=== PATIENT | male | born 1995 | race Caucasian/White ===

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

== ENCOUNTER 2017-01-04 22:16 | Emergency (ER) | payer OTHER ==
[2017-01-04 22:26] VITALS: BP 00/00; PULSE 114; BMI 23.3
--- NOTE | 2017-01-04 22:51 | PDOC ---
History of Present Illness - General Chief Complaint: Injury Stated Complaint: LACERATION Time Seen by Provider: 01/04/17 22:45 History Source: Care Provider, Custodial Records Exam Limitations: Clinical Condition - History of Present Illness Initial Comments: 01/04/17 22:46 21yo Severely Autistic patient presented to ED by Staff c/o laceration to inside of mouth, that occurred today. Staff states patient biting down on inside of right cheek, causing bleeding. Patient sent in for evaluation. Denies trauma, injury, fall, or any other complaints at this time. ---Spoke with facility Dr. Mixon regarding ED treatment. Discussion on suturing to inside of mouth should take place now or continue to watch and evaluate patient activity regarding biting to inside of mouth. It was agreed upon that no ED treatment or intervention at this time. If condition worsens, then patient should return to ED, for probable sedation and suturing of laceration. No other complaints verbalized. Past History - Travel Traveled outside of the country in the last 30 days: No Close contact w/someone who was outside of country & ill: No - Past Medical History Allergies/Adverse Reactions: Allergies Allergy/AdvReac Type Severity Reaction Status Date / Time No Known Allergies Allergy Verified 01/04/17 22:26 Home Medications: Ambulatory Orders Acetaminophen [Non-Aspirin Pain Relief] 650 mg PO PRN 11/09/15 Ammonium Lactate Lotion [Lac-Hydrin 12% Lotion -] 1 applic TP ASDIR 11/09/15 Ammonium Lactate [Skin Treatment] 225 gm TP BID 11/09/15 Benzoyl Peroxide 5% Gel - 1 applic TP BID 11/09/15 Benztropine Mesylate 2 mg PO QID 11/09/15 Clonazepam 2 mg PO QID 11/09/15 Clonidine HCl 0.1 mg PO TID 11/09/15 Clotrimazole [Lotrimin 1% Cream -] 1 applic TP DAILY 11/09/15 Haloperidol [Haldol -] 10 mg PO QID 11/09/15 Insulin Aspart [Novolog] 0 unit SQ ASDIR 11/09/15 Insulin Aspart [Novolog] 8 unit SQ AM 11/09/15 Insulin Glargine,Hum.rec.anlog [Lantus Solostar PEN (NF)] 12 units SQ HS Levetiracetam [Keppra -] 250 mg PO BID 11/09/15 Loperamide HCl [Loperamide] 2 mg PO PRN 11/09/15 Loratadine [Claritin -] 10 mg PO DAILY 11/09/15 Melatonin/Pyridoxine [Melatonin 3 mg Tablet] 1 each PO DAILY 11/09/15 Multivitamins [Tab-A-Vit -] 1 tab PO DAILY 11/09/15 Neomy Sulf/Bacitra/Polymyxin B [Neosporin Eye Ointment -] 1 applic OD TID Diabetes: Yes Psychiatric Problems: Yes (INTELLECTUAL ABILITY, MOOD DISORDER) Seizures: Yes - Psycho/Social/Smoking Cessation Hx Suicidal Ideation: No Smoking History: Never smoked Have you smoked in the past 12 months: No Hx Alcohol Use: No Drug/Substance Use Hx: No Substance Use Type: None Review of Systems - Review of Systems Able to Perform ROS?: No Is the patient limited Occitan proficient: Yes HEENTM: Yes: Mouth Pain, Other (< 1cm superficial laceration to patient mucous membrane (right side). Bleeding controlled.) All Other Systems: Reviewed and Negative *Physical Exam - Vital Signs Last Vital Signs Temp Pulse Resp BP Pulse Ox 114 H 20 00/00 99 01/04/17 22:21 01/04/17 22:21 01/04/17 22:21 01/04/17 22:21 - Physical Exam General Appearance: Yes: Nourished, Appropriately Dressed. No: Apparent Distress, Mild Distress, Moderate Distress, Severe Distress HEENT: positive: EOMI, JILLIAN, Normal ENT Inspection, Normal Voice, Symmetrical, TMs Normal, Pharynx Normal, Other (Superficial laceration noted to mucous membrane in patient mouth, right side.) Respiratory/Chest: positive: Lungs Clear, Normal Breath Sounds. negative: Chest Tender, Respiratory Distress, Accessory Muscle Use, Labored Respiration, Rapid RR Cardiovascular: positive: Tachycardia Gastrointestinal/Abdominal: negative: Distended, Guarding, Rebound, Tenderness Musculoskeletal: positive: Normal Inspection Integumentary: positive: Normal Color, Dry, Warm Neurologic: positive: Alert, Normal Response, Motor Strength 5/5 *DC/Admit/Observation/Transfer Diagnosis at time of Disposition: Laceration of internal mouth Qualifiers: Encounter type: initial encounter Qualified Code(s): S01.512A - Laceration without foreign body of oral cavity, initial encounter - Discharge Dispostion Disposition: HOME Condition at time of disposition: Stable Admit: No - Patient Instructions Printed Discharge Instructions: DI for Mouth Pain Additional Instructions: RETURN IF CONDITION WORSENS, OR ANY CONCERNS FOR FURTHER EVALUATION. IF SYMPTOMS WORSENS, PATIENT MAY NEED TO BE SEDATED FOR PROCEDURE (LACERATION REPAIR), DISCUSSED. Print Language: ITALIAN
--- NOTE | 2017-01-04 22:58 | PDOC ---
*Physical Exam - Vital Signs Last Vital Signs Temp Pulse Resp BP Pulse Ox 114 H 20 00 99 01/04/17 22:21 01/04/17 22:21 01/04/17 22:21 01/04/17 22:21 Medical Decision Making - Medical Decision Making 01/04/17 22:58 agree with care from COMMUNICATION ASSISTANT Dieudonne *DC/Admit/Observation/Transfer Diagnosis at time of Disposition: Laceration of internal mouth Qualifiers: Encounter type: initial encounter Qualified Code(s): S01.512A - Laceration without foreign body of oral cavity, initial encounter - Referrals - Patient Instructions Printed Discharge Instructions: DI for Mouth Pain Additional Instructions: RETURN IF CONDITION WORSENS, OR ANY CONCERNS FOR FURTHER EVALUATION. IF SYMPTOMS WORSENS, PATIENT MAY NEED TO BE SEDATED FOR PROCEDURE (LACERATION REPAIR), DISCUSSED. Print Language: GHANAIAN - Post Discharge Activity
== END 2017-01-04 23:09 | disposition home or self-care (01) ==
LOC: JER 22:16
DX: S01.512A Laceration without foreign body of oral cavity, initial encounter (principal); F84.0 Autistic disorder; F39 Unspecified mood [affective] disorder; E11.9 Type 2 diabetes mellitus without complications; X58.XXXA Exposure to other specified factors, initial encounter; Y93.89 Activity, other specified; Y92.9 Unspecified place or not applicable
CPT/HCPCS: 99281-25

== ENCOUNTER 2018-06-03 09:34 | Emergency (ER) | payer OTHER ==
[2018-06-03 09:49] VITALS: BP 108/69; PULSE 114; BMI 23.3
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
== END 2018-06-03 10:19 | disposition home or self-care (01) ==
LOC: JERFT 09:34 → JER 09:34 → JERFT 10:19
PROC: 0HQ1XZZ Repair Face Skin, External Approach (ICD-10-PCS; principal; 2018-06-03)
DX: S01.111A Laceration without foreign body of right eyelid and periocular area, initial encounter (principal); X58.XXXA Exposure to other specified factors, initial encounter; Y93.89 Activity, other specified; Y92.89 Other specified places as the place of occurrence of the external cause
CPT/HCPCS: 12011; 99281-25

== ENCOUNTER 2018-06-05 17:46 | Emergency (ER) | payer OTHER ==
[2018-06-05 17:53] VITALS: BMI 18.3
[2018-06-05] MEDS ORDERED: KETAMINE HCL 500 MG/10 ML VIAL IM ONE ×2 (19:14→20:23)
--- NOTE | 2018-06-05 19:14 | PDOC ---
History of Present Illness - General Chief Complaint: Laceration Stated Complaint: LACERATION Time Seen by Provider: 06/05/18 18:18 - History of Present Illness Initial Comments: Guido Hutchinson is a 22yo male with a PMH of severe developmental delay, alcohol syndrome, autism, and IDDM who presents with a laceration to his left outer ear and left scalp. His caregivers report that Guido was "speed walking backwards" to get away this evening, and he tripped over his bed. He struck the side of his head on nearby furniture and sustained the laceration. He had no LOC or subsequent nausea/vomiting, AMS, or neurological deficits. Past History - Past Medical History Allergies/Adverse Reactions: Allergies Allergy/AdvReac Type Severity Reaction Status Date / Time No Known Allergies Allergy Verified 06/05/18 17:51 Home Medications: Ambulatory Orders Acetaminophen [Non-Aspirin Pain Relief] 650 mg PO PRN 11/09/15 Ammonium Lactate Lotion [Lac-Hydrin 12% Lotion -] 1 applic TP ASDIR 11/09/15 Ammonium Lactate [Skin Treatment] 225 gm TP BID 11/09/15 Benzoyl Peroxide 5% Gel - 1 applic TP BID 11/09/15 Benztropine Mesylate 2 mg PO QID 11/09/15 Clonidine HCl 0.1 mg PO TID 11/09/15 Clotrimazole [Lotrimin 1% Cream -] 1 applic TP DAILY 11/09/15 Haloperidol [Haldol -] 10 mg PO QID 11/09/15 Insulin Aspart [Novolog] 0 unit SQ ASDIR 11/09/15 Insulin Aspart [Novolog] 8 unit SQ AM 11/09/15 Insulin Glargine,Hum.rec.anlog [Lantus Solostar PEN (NF)] 12 units SQ HS Loperamide HCl [Loperamide] 2 mg PO PRN 11/09/15 Loratadine [Claritin -] 10 mg PO DAILY 11/09/15 Melatonin/Pyridoxine [Melatonin 3 mg Tablet] 1 each PO DAILY 11/09/15 Multivitamins [Tab-A-Vit -] 1 tab PO DAILY 11/09/15 Neomy Sulf/Bacitra/Polymyxin B [Neosporin Eye Ointment -] 1 applic OD TID 04/23/ 16 clonazePAM [Clonazepam] 2 mg PO QID 11/09/15 levETIRAcetam [Keppra -] 250 mg PO BID 11/09/15 levoFLOXacin [Levaquin -] 500 mg PO DAILY #7 tablet 06/05/18 COPD: No Diabetes: Yes (TYPE 1) Psychiatric Problems: Yes (ADHD,AUTISM, ALCOHOL SYNDROME,MOOD DISORDER) Seizures: Yes - Suicide/Smoking/Psychosocial Hx Smoking History: Never smoked Have you smoked in the past 12 months: No Hx Alcohol Use: No Drug/Substance Use Hx: No Substance Use Type: None Review of Systems - Review of Systems Comments:: Could not obtain. Patient is nonverbal *Physical Exam - Vital Signs Last Vital Signs Temp Pulse Resp BP Pulse Ox 109 H 20 131/56 L 99 06/05/18 17:47 06/05/18 17:47 06/05/18 17:47 06/05/18 17:47 - Physical Exam Comments: General: No acute distress HEENT: PERRL, EOMI. Healing wound on forehead with dermabond in place. Left ear with laceration in rectangular flap shape, approximately 2cm in length vertically with 7-8mm horizontal edges, exposed cartilage visible. No injury to underlying cartilage noted. Left temporal scalp with small, less than 1cm clean linear laceration under his hair. No underlying edema or hematoma. Cards: RRR, Pulm: Comfortable on room air Vasc: Extremities WWP. Skin: Normal color, no rashes or lesions Neuro: Alert, non-verbal, moving all extremities, no focal deficits Moderate Sedation - Pre-Procedure Assessment # 1 Other Is this a Moderate (Conscious) sedation patient?: Yes Med/Surg Hx & PE performed: Yes Vital Signs: Vital Signs Temp Pulse Resp BP Pulse Ox 109 H 20 131/56 L 99 06/05/18 17:47 06/05/18 17:47 06/05/18 17:47 06/05/18 17:47 Does the patient have a history of Obstructive Sleep Apnea: No Prior complications with sedation/analgesia: No Mallampati Score: II ASA Physical Status: Class I Consent obtained: Written, From Parents (Written consent from parents provided by facility. ) Sedation agent: Ketamine (450mg IM ketamine) - Post Procedure Assessment Tolerated procedure well: Yes Was a reversal agent used?: No Patient evaluation: Vital signs reviewed, Pain controlled Printed Discharge Instructions given: Yes Procedures - Laceration/Wound Repair Left Ear Wound Length: to 2.5 cm Wound Explored: clean Wound's Depth, Shape: irregular, flap Irrigated w/ Saline: Yes Betadine Prep: Yes Anesthesia: 1% Lidocaine Amount of Anesthetic (ccs): 1 Wound Debrided: moderate (Trimmed 0.5cm of dark, avascular tissue from inferior edge of wound) Wound Repaired With: Sutures Suture Size/Type: 5:0, other (Chromic) Number of Sutures: 4 Sterile Dressing Applied: No (could not place on ears) Medical Decision Making - Medical Decision Making Guido Hutchinson is a 22yo male with a PMH of IDDM, autism, severe developmental delay, alcohol syndrome, and multiple previous visits for lacerations and minor injuries who presents with a 2cm laceration to the left ear and a 0.5cm to the left temporal scalp today. - Lacerations minimally examined due to non-cooperation. Ear laceration appears clean but will require suturing. Scalp lac is minor and does not appear to require intervention. - Plan to give ketamine IM 10mg/kg for sedation to complete lac repair. - Dr Kingston spoke to on-call plastic surgeon, who is recommending repair with 5- 0 chromic gut 06/05/18 21:02 - IM ketamine given for procedural sedation. 450mg IM ketamine administered without any complications. Vitals were monitored throughout the procedure - The wound was cleaned with betadine and irrigated with copious normal saline. - At the inferior edge of the wound, the tissue appeared dark and a small strip of non-viable tissue measuring approximately 0.5cm in length and 1mm in width was sharply debrided - Less than 1cc of 1% lidocaine was injected locally - 4 simple interrupted sutures placed using 5-0 chromic - The wound was dressed with bacitracin ointment - Mr Hutchinson's PMD, Dr Davis, was contacted by Dr Kingston regarding wound care - Per plastics recommendation, will give 500mg levaquin for 7 days - Plan to discharge back to facility with PMD follow up. Seen and discussed with Dr Kingston. Maranda Gandhi PGY1 *DC/Admit/Observation/Transfer Diagnosis at time of Disposition: Laceration of ear, external, left - Discharge Dispostion Disposition: HOME Condition at time of disposition: Stable Decision to Admit order: No - Prescriptions Prescriptions: levoFLOXacin [Levaquin -] 500 mg PO DAILY #7 tablet - Referrals Referrals: Mary Grace Davis MD [Primary Care Provider] - - Patient Instructions Printed Discharge Instructions: DI for Laceration Repair, DI for Moderate Sedation Additional Instructions: Discharge Instructions: You were seen in the ED for a laceration to the left ear and a small laceration to the left scalp behind the ear. The ear wound was repaired with 4 stitches. These stitches will dissolve over time and do not need to be removed. The scalp wound was small and did not need to be repaired. You also had sedation given for the wound repair. Please see the attached discharge instructions for Moderate Sedation. You may wish to cover your pillow with towels tonight as the wound may continue to drain overnight. Please keep both wounds clean and dry. Apply bacitracin ointment twice per day for the next few days to prevent infection. You have also been prescribed an antibiotic called levofloxacin 500mg. This should be taken daily for the next week. Please complete the entire prescription even if you are feeling well. Please follow up with your primary physician within the next week to make sure the wounds are healing well. If you are concerned about the ear wound healing, you should follow up with ENT. You have been referred to Dr Lewis if you do not already have an ENT that you see regularly. Seek medical care if your wound becomes increasingly red, swollen, or painful, if you notice pus draining from the wound, or if you feel the wound appears infected. - Post Discharge Activity
[2018-06-05] MEDS ORDERED: KETAMINE HCL 500 MG/10 ML VIAL ONE (19:33)
[2018-06-05] MEDS ORDERED: KETAMINE HCL 200 MG/20 ML VIAL ONE (20:27)
--- NOTE | 2018-06-05 21:29 | PDOC ---
Attending Attestation - Resident Resident Name: HiramMaranda - ED Attending Attestation I have performed the following: I have examined & evaluated the patient, The case was reviewed & discussed with the resident, I agree w/resident's findings & plan, Exceptions are as noted - HPI HPI: 06/05/18 21:27 22 yo male from [facility] for ear laceration and small scalp laceration pt has severe cognitive deficits, alcohol,self abusive behavior and is IDDM 06/06/18 02:11 - Physicial Exam PE: 06/05/18 21:29 slender 22 yo male with left ear laceration and small left sided parietal scalp laceration head 3mm superficial laceration to left parietal scalp right ear - there is 3cm laceration ,full thickness neck no tenderness upon palpation lungs cta b/l cvs [id number] abd soft,flat ext no deformities neuro ambulatory,alert,nonverbal ,moving all extremities,good motor strength - Medical Decision Making 06/06/18 02:12 pt had sedation with ketamoine for his laceration repair -placed on cardiac monitoring ,capnography and pulse ox -pt had stable Vital Signs throughout the procedure which he tolerated well -case was discussed w Dr Davis and pt d/c back to facility
[2018-06-05 22:55] VITALS: BP 123/73; PULSE 79
== END 2018-06-05 22:15 | disposition home or self-care (01) ==
LOC: JER 17:46
PROC: 0HQ3XZZ Repair Left Ear Skin, External Approach (ICD-10-PCS; principal; 2018-06-05)
PROC: 3E023BZ Introduction of Anesthetic Agent into Muscle, Percutaneous Approach (ICD-10-PCS; 2018-06-05)
DX: S01.01XA Laceration without foreign body of scalp, initial encounter (principal); S01.312A Laceration without foreign body of left ear, initial encounter; W01.190A Fall on same level from slipping, tripping and stumbling with subsequent striking against furniture, initial encounter; Y93.01 Activity, walking, marching and hiking; Y92.112 Bedroom in children's home and orphanage as the place of occurrence of the external cause; Y99.8 Other external cause status; E10.9 Type 1 diabetes mellitus without complications; Z79.4 Long term (current) use of insulin; Q86.0 Fetal alcohol syndrome (dysmorphic); F84.0 Autistic disorder; Z91.5 Personal history of self-harm; R62.59 Other lack of expected normal physiological development in childhood
CPT/HCPCS: 12011; 96372; 99285-25

== ENCOUNTER 2018-06-05 23:43 | Emergency (ER) | payer OTHER ==
[2018-06-05 23:56] VITALS: BMI 19.5
--- NOTE | 2018-06-06 00:07 | PDOC ---
History of Present Illness - General History Source: Patient, Care Provider Exam Limitations: No Limitations - History of Present Illness Initial Comments: 06/06/18 01:12 The patient is a 22 year old male, with a significant PMH of severe cognitive deficits,autism,self abusive behavior and is IDDM who presents to the emergency department via EMS from [facility] with lethargy. The patient came in earlier for facial trauma and the sedative ketamine was given for suture repair.The patient denies chest pain, shortness of breath, headache and dizziness. Denies fever, chills, nausea, vomit, diarrhea and constipation. Allergies: NKDA Past surgical history: None reported Social history: None reported PCP: None reported <Lena Acosta - Last Filed: 06/06/18 01:33> <Dennise Kingston - Last Filed: 06/06/18 01:41> <Taisha Cadena - Last Filed: 06/06/18 03:59> - General Chief Complaint: Lethargy Stated Complaint: HIGH BLOOD SUGAR Time Seen by Provider: 06/05/18 23:47 Past History <Lena Acosta - Last Filed: 06/06/18 01:33> - Past Medical History COPD: No Diabetes: Yes (TYPE 1) Psychiatric Problems: Yes (ADHD,AUTISM, ALCOHOL SYNDROME,MOOD DISORDER) Seizures: Yes - Suicide/Smoking/Psychosocial Hx Smoking History: Never smoked Have you smoked in the past 12 months: No Hx Alcohol Use: No Drug/Substance Use Hx: No Substance Use Type: None <Dennise Kingston - Last Filed: 06/06/18 01:41> <Taisha Cadena - Last Filed: 06/06/18 03:59> - Past Medical History Allergies/Adverse Reactions: Allergies Allergy/AdvReac Type Severity Reaction Status Date / Time No Known Allergies Allergy Verified 06/05/18 17:51 Home Medications: Ambulatory Orders Acetaminophen [Non-Aspirin Pain Relief] 650 mg PO PRN 11/09/15 Ammonium Lactate Lotion [Lac-Hydrin 12% Lotion -] 1 applic TP ASDIR 11/09/15 Ammonium Lactate [Skin Treatment] 225 gm TP BID 11/09/15 Benzoyl Peroxide 5% Gel - 1 applic TP BID 11/09/15 Benztropine Mesylate 2 mg PO QID 11/09/15 Clonidine HCl 0.1 mg PO TID 11/09/15 Clotrimazole [Lotrimin 1% Cream -] 1 applic TP DAILY 11/09/15 Haloperidol [Haldol -] 10 mg PO QID 11/09/15 Insulin Aspart [Novolog] 0 unit SQ ASDIR 11/09/15 Insulin Aspart [Novolog] 8 unit SQ AM 11/09/15 Insulin Glargine,Hum.rec.anlog [Lantus Solostar PEN (NF)] 12 units SQ HS Loperamide HCl [Loperamide] 2 mg PO PRN 11/09/15 Loratadine [Claritin -] 10 mg PO DAILY 11/09/15 Melatonin/Pyridoxine [Melatonin 3 mg Tablet] 1 each PO DAILY 11/09/15 Multivitamins [Tab-A-Vit -] 1 tab PO DAILY 11/09/15 Neomy Sulf/Bacitra/Polymyxin B [Neosporin Eye Ointment -] 1 applic OD TID clonazePAM [Clonazepam] 2 mg PO QID 11/09/15 levETIRAcetam [Keppra -] 250 mg PO BID 11/09/15 levoFLOXacin [Levaquin -] 500 mg PO DAILY #7 tablet 06/05/18 Review of Systems - Review of Systems Able to Perform ROS?: No (due to congitive deficit ) Comments:: 06/06/18 01:33 <Lena Acosta - Last Filed: 06/06/18 01:33> *Physical Exam - Vital Signs Last Vital Signs Temp Pulse Resp BP Pulse Ox 97.7 F 101 H 18 123/71 100 06/05/18 23:51 06/06/18 01:02 06/06/18 01:02 06/06/18 01:02 06/06/18 01:02 - Physical Exam Comments: 06/06/18 01:24 GENERAL: Well developed, well nourished. Awake and alert. No acute distress. HEENT: +3 mm left parietal laceration. Left ear 2cm by 7mm L shape laceration on left year closed by sutures. Normocephalic, atraumatic. PERRLA, EOMI. No conjunctival pallor. Sclera are non-icteric. Moist mucous membranes. Oropharynx is clear. NECK: Supple. Full ROM. No JVD. Carotid pulses 2+ and symmetric, without bruits. No thyromegaly. No lymphadenopathy. CARDIOVASCULAR: Regular rate and rhythm. No murmurs, rubs, or gallops. Distal pulses are 2+ and symmetric. PULMONARY: No evidence of respiratory distress. Lungs clear to auscultation bilaterally. No wheezing, rales or rhonchi. ABDOMINAL: Soft. Non-tender. Non-distended. No rebound or guarding. No organomegaly. Normoactive bowel sounds. MUSCULOSKELETAL Normal range of motion at all joints. No bony deformities or tenderness. No CVA tenderness. EXTREMITIES: No cyanosis. No clubbing. No edema. No calf tenderness. SKIN: Warm and dry. Normal capillary refill. No rashes. No jaundice. NEUROLOGICAL: Not verbal at baseline, mostly sleeping but did sit up for CT scan PSYCHIATRIC: Cooperative. Good eye contact. Appropriate mood and affect. <Lena Acosta - Last Filed: 06/06/18 01:33> - Vital Signs Last Vital Signs Temp Pulse Resp BP Pulse Ox 97.7 F 82 18 114/79 100 06/05/18 23:51 06/05/18 23:51 06/05/18 23:51 06/05/18 23:51 06/05/18 23:51 <Dennise Kingston - Last Filed: 06/06/18 01:41> - Vital Signs Last Vital Signs Temp Pulse Resp BP Pulse Ox 97.7 F 101 H 18 123/71 100 06/05/18 23:51 06/06/18 01:02 06/06/18 01:02 06/06/18 01:02 06/06/18 01:23 <Taisha Cadena - Last Filed: 06/06/18 03:59> ED Treatment Course - RADIOLOGY Radiology Studies Ordered: Category Date Time Status HEAD CT WITHOUT CONTRAST [CT] Stat CT Scan 06/05/18 23:47 Taken <Dennise iKngston - Last Filed: 06/06/18 01:41> Medical Decision Making - Medical Decision Making 06/06/18 00:07 22-year-old male brought in by ambulance from [facility] for lethargy following head and facial trauma earlier this evening. He has had several episodes head trauma in past week 06/06/18 00:08 bgm about 350 Past medical history autism, , behavioral and cognitive deficits ,IDDM 06/06/18 00:28 22 yo male BIBA for concern of head traumnma,sleepniess facility requesting ct scan head head small 3mm superfical head laceration on his left pariatel area rt ear has a laceration that is sutured with 4 chromic sutures eyes eomi lungs cta b/l cvs [id number] abd soft,no guarding neuro pt's nonverbal,appears sleepy,sat up on the gurney after cat scan 06/06/18 01:38 ct scan of head : no acute brain parenchymal abnormality,no hemorrhage,no mass, or acute territorial infarct . 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 No hemorrhage, mass or acute territorial infarct. Clear visualized paranasal sinuses. Visualized mastoid air cells clear. 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 Soft tissue calcifications left greater than right pinnae. One or more of the following dose reduction techniques were used: automated exposure control, adjustment of the mA and/or kV according to patient size, use of iterative reconstructive technique. 06/06/18 03:58 Pt will be discahrged back to the [facility]. <Taisha Cadena - Last Filed: 06/06/18 03:59> *DC/Admit/Observation/Transfer - Attestations Scribe Attestion: 06/06/18 01:25 Documentation prepared by Lena Acosta, acting as medical technologist prn for Dennise Kingston MD. <Lena Acosta - Last Filed: 06/06/18 01:33> <Dennise Kingston - Last Filed: 06/06/18 01:41> <Taisha Cadena - Last Filed: 06/06/18 03:59> Diagnosis at time of Disposition: Laceration of ear, external, left Qualifiers: Encounter type: subsequent encounter Qualified Code(s): S01.312D - Laceration without foreign body of left ear, subsequent encounter Laceration of scalp Qualifiers: Encounter type: subsequent encounter Qualified Code(s): S01.01XD - Laceration without foreign body of scalp, subsequent encounter Head trauma Qualifiers: Encounter type: initial encounter Qualified Code(s): S09.90XA - Unspecified injury of head, initial encounter - Patient Instructions Printed Discharge Instructions: DI for Closed Head Injury
[2018-06-06 06:22] VITALS: BP 109/86; PULSE 84; TEMP 97.8
== END 2018-06-06 06:38 | disposition home or self-care (01) ==
LOC: JER 23:43
DX: S01.01XD Laceration without foreign body of scalp, subsequent encounter (principal); S01.301D Unspecified open wound of right ear, subsequent encounter; W01.190D Fall on same level from slipping, tripping and stumbling with subsequent striking against furniture, subsequent encounter
CPT/HCPCS: 70450-TC; 99283-25